=== PATIENT | female | born 1950 | race Caucasian/White ===

== ENCOUNTER 2017-07-25 14:29 | Emergency (ER) | payer MEDICARE ==
[2017-07-25] MEDS ORDERED: Acetaminophen/Codeine 30-300mg Tablet ONE (15:02)
--- NOTE | 2017-07-25 15:34 | RAD ---
RIGHT WRIST: Date: 07/25/17 HISTORY: Fall with injury to wrist. FINDINGS: There is a transverse fracture through the distal radius. There is dorsal angulation of the distal fr agment. There is associated fracture from the tip of the ulnar styloid. IMPRESSION: Fracture distal radius and ulna as described. POS: [facility]
== END 2017-07-25 15:48 | disposition home or self-care (01) ==
LOC: ERS 14:29
DX: S52.611A Displaced fracture of right ulna styloid process, initial encounter for closed fracture (principal); S52.501A Unspecified fracture of the lower end of right radius, initial encounter for closed fracture; E03.9 Hypothyroidism, unspecified; F41.9 Anxiety disorder, unspecified; F32.9 Major depressive disorder, single episode, unspecified; W01.0XXA Fall on same level from slipping, tripping and stumbling without subsequent striking against object, initial encounter
CPT/HCPCS: 29125

== ENCOUNTER 2017-07-26 07:12 | Emergency (ER) | payer MEDICARE ==
[2017-07-26] MEDS ORDERED: Ibuprofen 200 MG TAB ONE (07:58)
== END 2017-07-26 10:15 | disposition home or self-care (01) ==
LOC: ERS 07:12
DX: S52.501D Unspecified fracture of the lower end of right radius, subsequent encounter for closed fracture with routine healing (principal); S52.611D Displaced fracture of right ulna styloid process, subsequent encounter for closed fracture with routine healing; E03.9 Hypothyroidism, unspecified; F41.9 Anxiety disorder, unspecified; F32.9 Major depressive disorder, single episode, unspecified; Z79.899 Other long term (current) drug therapy
CPT/HCPCS: 99283

== ENCOUNTER 2023-08-08 12:15 | Inpatient (IN) | payer MEDICARE ==
[2023-08-08] MEDS ORDERED: Dextrose 5% in Water 1,000 ML IV PRN (13:05)
[2023-08-08] MEDS ORDERED: Acetaminophen 325 MG TAB PO PRN (13:05)
[2023-08-08] MEDS ORDERED: Dextrose 50% Abboject 50 ML SYRINGE SLOW IVP PRN (13:05)
[2023-08-08] MEDS ORDERED: Glucagon 1 MG/ML KIT IM PRN (13:05)
[2023-08-08] MEDS: Ondansetron PF 4 MG/2 ML Vial IVP PRN (13:30)
[2023-08-08] MEDS: Morphine 2 MG/ML VIAL SLOW IVP PRN (13:30)
[2023-08-08] MEDS: ESOMEPRAZOLE 40 MG PO SCH (17:42)
[2023-08-08 18:48] VITALS: BMI 22.4
[2023-08-08] MEDS: BUPROPION 100 MG TABLET PO SCH (20:29)
[2023-08-08] MEDS: Acetaminophen/Codeine 30-300mg Tablet PO PRN (20:32)
[2023-08-08] MEDS: TETANUS, DIPHTHERIA TOX,ADULT (TDVAX) 0.5 ML VIAL IM ONE (22:59)
[2023-08-09 05:38] LABS: #Basophils 0.03 10x3/uL (0.0-0.2); %Basophils 0.3 % (0.0-1.0); %Lymphocytes 8.5 % (21.0-51.0); %Monocytes 9.2 % (0.0-10.0); %Neutrophils 79.4 % (42.0-75.0); Hematocrit 34.9 % (36.0-47.0); Hemoglobin 11.2 g/dL (12.0-16.0); Mean Corpuscular HGB CONC 32.1 g/dL (32.0-36.0); Mean Corpuscular Hemoglobin 29.5 pg (27.0-31.0); Mean Corpuscular Volume 91.8 fL (78.0-98.0); Mean Platelet Volume 10.2 fL (7.4-10.4); Platelet Count 274 10x3/uL (130-400); RBC Distribution Width 14.1 % (11.5-14.5)
[2023-08-09] MEDS: LEVOTHYROXINE 150 MCG TAB PO SCH (05:52)
[2023-08-09 06:26] LABS: Anion Gap 15 mmol/L (10-20); BUN (Urea Nitrogen) 21 mg/dL (9.8-20.1); Calc. Creatinine Clearance 44 mL/min (70-130); Calcium 8.9 mg/dL (7.8-10.44); Carbon Dioxide 21 mmol/L (23-31); Chloride 107 mmol/L (98-107); Estimated GFR 63; Glucose 123 mg/dL (83-110); Sodium 139 mmol/L (136-145)
[2023-08-09] MEDS ORDERED: CEFAZOLIN 2 GM in Sodium Chloride 0.9% 100 ML IVPB SCH (07:30)
[2023-08-09] MEDS: LOSARTAN 25 MG TABLET PO SCH (07:41)
[2023-08-09] MEDS ORDERED: Pantoprazole DR 40 MG TAB PO SCH (08:00)
[2023-08-09] MEDS ORDERED: buPROPion HCl 100 MG TAB PO SCH (09:00)
[2023-08-09] MEDS ORDERED: Sodium Chloride 0.9% 100 ML ONE (12:07)
[2023-08-09] MEDS ORDERED: CEFAZOLIN 2 GM VIAL ONE (12:07)
[2023-08-09] MEDS ORDERED: PROPOFOL 20 ML ONE ×2 (12:24→13:50)
[2023-08-09] MEDS ORDERED: fentaNYL 50 mcg/mL 1 mL Vial ONE (12:25)
[2023-08-09] MEDS ORDERED: Lidocaine 1% PF 5 ML VIAL ONE (12:40)
[2023-08-09] MEDS ORDERED: Ketorolac Tromethamine 30 MG (1 mL) VIAL ONE (12:40)
[2023-08-09] MEDS ORDERED: fentaNYL PF 100 MCG/2 ML SYRINGE ONE (13:00)
[2023-08-09] MEDS ORDERED: Ondansetron PF 4 MG/2 ML Vial ONE (13:44)
[2023-08-09] MEDS ORDERED: Dexamethasone 4 mg/ml Vial ONE (13:44)
[2023-08-09] MEDS: HYDROcodone/Acetaminophen 5/325 mg Tablet PO PRN (15:20)
[2023-08-10] MEDS ORDERED: Cyclobenzaprine 10 MG TAB PO PRN (07:42)
[2023-08-10] MEDS ORDERED: Acetaminophen 325 MG TAB PO SCH (08:00)
[2023-08-10] MEDS: Aspirin 81 mg Enteric Coated Tablet PO SCH (08:30)
[2023-08-10] MEDS: Acetaminophen/Codeine 30-300mg Tablet PO SCH (08:31)
[2023-08-10 10:38] LABS: #Basophils Less than 0.03 10x3/uL (0.0-0.2); %Basophils 0.3 % (0.0-1.0); %Eosinophils 0.9 % (0.0-10.0); %Lymphocytes 11.4 % (21.0-51.0); %Monocytes 10.6 % (0.0-10.0); %Neutrophils 76.2 % (42.0-75.0); Hemoglobin 8.7 g/dL (12.0-16.0); Mean Corpuscular HGB CONC 32.2 g/dL (32.0-36.0); Mean Corpuscular Hemoglobin 28.8 pg (27.0-31.0); Mean Corpuscular Volume 89.4 fL (78.0-98.0); Mean Platelet Volume 10.5 fL (7.4-10.4); Platelet Count 244 10x3/uL (130-400); RBC Distribution Width 14.2 % (11.5-14.5); Red Blood Cell (RBC) Count 3.02 mill/uL (4.20-5.40)
[2023-08-10 10:58] LABS: Anion Gap 14 mmol/L (10-20); BUN (Urea Nitrogen) 23 mg/dL (9.8-20.1); Calc. Creatinine Clearance 47 mL/min (70-130); Calcium 8.5 mg/dL (7.8-10.44); Carbon Dioxide 22 mmol/L (23-31); Chloride 106 mmol/L (98-107); Estimated GFR 68; Glucose 155 mg/dL (83-110); Potassium 3.5 mmol/L (3.5-5.1); Sodium 138 mmol/L (136-145)
[2023-08-10] MEDS: Acetaminophen 325 MG TAB PO SCH (11:31)
[2023-08-10] MEDS: Ferrous Sulfate 325 MG TAB PO SCH (17:37)
[2023-08-10] MEDS: Ascorbic Acid 500 mg Chewable Tablet PO SCH (20:38)
[2023-08-11 05:22] LABS: #Basophils 0.03 10x3/uL (0.0-0.2); %Basophils 0.5 % (0.0-1.0); %Eosinophils 3.1 % (0.0-10.0); %Lymphocytes 11.2 % (21.0-51.0); %Monocytes 12.9 % (0.0-10.0); %Neutrophils 71.1 % (42.0-75.0); Hemoglobin 7.9 g/dL (12.0-16.0); Mean Corpuscular HGB CONC 31.6 g/dL (32.0-36.0); Mean Corpuscular Hemoglobin 28.6 pg (27.0-31.0); Mean Corpuscular Volume 90.6 fL (78.0-98.0); Mean Platelet Volume 10.6 fL (7.4-10.4); Platelet Count 224 10x3/uL (130-400); RBC Distribution Width 14.5 % (11.5-14.5); Red Blood Cell (RBC) Count 2.76 mill/uL (4.20-5.40)
[2023-08-11 05:47] LABS: Anion Gap 15 mmol/L (10-20); BUN (Urea Nitrogen) 19 mg/dL (9.8-20.1); Calc. Creatinine Clearance 49 mL/min (70-130); Calcium 8.4 mg/dL (7.8-10.44); Carbon Dioxide 24 mmol/L (23-31); Chloride 105 mmol/L (98-107); Estimated GFR 73; Glucose 121 mg/dL (83-110); Potassium 3.9 mmol/L (3.5-5.1); Sodium 140 mmol/L (136-145)
[2023-08-11] MEDS: Clopidogrel Bisulfate 75 MG TAB PO SCH (08:16)
[2023-08-11] MEDS: Lactulose 20 GM (30 mL) UDCUP PO SCH (15:01)
[2023-08-11] MEDS: Senokot S 8.6-50 MG TAB PO SCH (20:43)
[2023-08-12] MEDS: Polyethylene Glycol 3350 17 GM Packet PO SCH (08:27)
[2023-08-12] MEDS: diphenhydrAMINE 25 MG CAP PO SCH ×2 (11:17→20:01)
[2023-08-12] MEDS: Pseudoephedrine HCl 30 MG TAB PO PRN (11:17)
[2023-08-13 06:06] LABS: #Basophils Less than 0.03 10x3/uL (0.0-0.2); %Basophils 0.3 % (0.0-1.0); %Eosinophils 6.5 % (0.0-10.0); %Lymphocytes 13.1 % (21.0-51.0); %Monocytes 10.4 % (0.0-10.0); %Neutrophils 68.8 % (42.0-75.0); Hemoglobin 7.7 g/dL (12.0-16.0); Mean Corpuscular HGB CONC 30.8 g/dL (32.0-36.0); Mean Corpuscular Hemoglobin 29.2 pg (27.0-31.0); Mean Corpuscular Volume 94.7 fL (78.0-98.0); Mean Platelet Volume 10.4 fL (7.4-10.4); Platelet Count 290 10x3/uL (130-400); RBC Distribution Width 14.6 % (11.5-14.5); Red Blood Cell (RBC) Count 2.64 mill/uL (4.20-5.40)
[2023-08-13] MEDS: Ondansetron ODT 4 MG TAB PO PRN (06:39)
[2023-08-13 13:07] VITALS: BP 158/52; TEMP 97.9
== END 2023-08-13 13:15 | DRG 522 ==
LOC: SURG A 12:15
PROVIDERS: ADMIT Surgery; ATTEND Surgery
PROC: 0SRS0J9 Replacement of Left Hip Joint, Femoral Surface with Synthetic Substitute, Cemented, Open Approach (ICD-10-PCS; principal; 2023-08-09)
DX: S72.032A Displaced midcervical fracture of left femur, initial encounter for closed fracture (principal); W19.XXXA Unspecified fall, initial encounter; E03.9 Hypothyroidism, unspecified; F41.9 Anxiety disorder, unspecified; F32.9 Major depressive disorder, single episode, unspecified; I25.2 Old myocardial infarction; Z90.710 Acquired absence of both cervix and uterus; Z87.891 Personal history of nicotine dependence; Z79.899 Other long term (current) drug therapy
CPT/HCPCS: 36415; 72170; 80048; 85025; 90714; C1713; C1776; C1889; J1100; J1885; J2272; J2405; J2704; J3010; J3490; Q0162